=== PATIENT | male | born 1970 | race Two or more races ===

== ENCOUNTER 2020-09-12 20:26 | Emergency (ER) | payer OTHER ==
[~2020-09-12] VITALS: Ht 182.9 cm; Wt 99.8 kg
== END 2020-09-12 22:50 | disposition home or self-care (01) ==
LOC: ER 20:26
DX: S90.01XA Contusion of right ankle, initial encounter (principal); W01.198A Fall on same level from slipping, tripping and stumbling with subsequent striking against other object, initial encounter; Y93.02 Activity, running; Y92.414 Local residential or business street as the place of occurrence of the external cause; Y99.8 Other external cause status